=== PATIENT | female | born 2000 | race Caucasian/White ===

== ENCOUNTER 2020-01-08 00:04 | Emergency (ER) | payer OTHER ==
[~2020-01-08] VITALS: Ht 165.1 cm; Wt 81.7 kg
[2020-01-08 02:07] VITALS: BP 122/64
== END 2020-01-08 02:07 | disposition home or self-care (01) ==
LOC: M.ERS 00:04
DX: S06.0X0A Concussion without loss of consciousness, initial encounter (principal); W22.8XXA Striking against or struck by other objects, initial encounter; Y93.89 Activity, other specified; Y92.89 Other specified places as the place of occurrence of the external cause; Y99.8 Other external cause status

== ENCOUNTER 2021-01-18 20:42 | Emergency (ER) | payer OTHER ==
[~2021-01-18] VITALS: Ht 165.1 cm; Wt 84.4 kg
[2021-01-18 20:59] LABS: URINE BILIRUBIN NEGATIVE (Negative); URINE BLOOD 1+ (Negative); URINE CLARITY SL CLOUDY; URINE COLOR YELLOW; URINE GLUCOSE-RANDOM NEGATIVE (Negative); URINE KETONES NEGATIVE (Negative); URINE LEUKOCYTES-REFLEX 3+ (Negative); URINE NITRITE-REFLEX POSITIVE (Negative); URINE PROTEIN NEGATIVE (Negative); URINE SPECIFIC GRAVITY 1.025 (1.005-1.030); URINE UROBILINOGEN 0.2 E.U./dl (0.2-1.0)
[2021-01-18 21:06] LABS: CASTS None Seen /LPF (None Seen); MUCUS None Seen strn/LPF (None Seen); SQUAMOUS >10 Many /LPF (0-3)
[2021-01-18 21:07] LABS: URINE RBC 3-10 Few /HPF (0-2); URINE WBC-REFLEX >25 Many /HPF (0-5)
[2021-01-18 21:08] LABS: CRYSTALS None Seen /LPF (None Seen)
[2021-01-18] MEDS ORDERED: ZOFRAN ODT4 MG PO (21:20)
[2021-01-18] MEDS ORDERED: BACTRIM DS TAB1 EACH PO (21:20)
[2021-01-18 21:43] VITALS: BP 121/67
== END 2021-01-18 21:44 | disposition home or self-care (01) ==
LOC: M.ERS 20:42
PROVIDERS: Emergency Medicine
DX: N39.0 Urinary tract infection, site not specified (principal); Z87.891 Personal history of nicotine dependence

== ENCOUNTER 2021-03-02 20:00 | Emergency (ER) | payer OTHER ==
[~2021-03-02] VITALS: Ht 165.1 cm; Wt 83.5 kg
[~2021-03-02 20:00] MED LIST: BACTRIM DS TAB1 EACH PO; ZOFRAN ODT4 MG PO
[2021-03-02 20:06] VITALS: BP 113/56
[2021-03-02 21:25] LABS: URINE BILIRUBIN NEGATIVE (Negative); URINE BLOOD NEGATIVE (Negative); URINE CLARITY CLEAR; URINE COLOR YELLOW; URINE GLUCOSE-RANDOM NEGATIVE (Negative); URINE KETONES TRACE (Negative); URINE LEUKOCYTES-REFLEX NEGATIVE (Negative); URINE NITRITE-REFLEX NEGATIVE (Negative); URINE PROTEIN NEGATIVE (Negative); URINE SPECIFIC GRAVITY >= 1.030 (1.005-1.030); URINE UROBILINOGEN 0.2 E.U./dl (0.2-1.0)
[2021-03-02 21:51] LABS: INFLUENZA A ANTIGEN Negative (Negative); INFLUENZA B ANTIGEN Negative (Negative)
== END 2021-03-03 00:29 | disposition left against medical advice (07) ==
LOC: M.ERS 20:00
PROVIDERS: Physician Assistant
DX: R11.2 Nausea with vomiting, unspecified (principal); R50.9 Fever, unspecified; M54.50 Low back pain, unspecified; Z53.21 Procedure and treatment not carried out due to patient leaving prior to being seen by health care provider